=== PATIENT | female | born 1990 | race Caucasian/White ===

== ENCOUNTER 2019-03-06 05:12 | Emergency (ER) | payer BC ==
[~2019-03-06] VITALS: Ht 162.6 cm; Wt 77.1 kg
[2019-03-06 05:54] LABS: URINE BILIRUBIN NEGATIVE (Negative); URINE BLOOD NEGATIVE (Negative); URINE CLARITY CLEAR; URINE COLOR YELLOW; URINE GLUCOSE-RANDOM* NEGATIVE (Negative); URINE KETONES NEGATIVE (Negative); URINE LEUKOCYTES-REFLEX NEGATIVE (Negative); URINE NITRITE-REFLEX NEGATIVE (Negative); URINE PROTEIN (DIPSTICK) NEGATIVE (Negative); URINE SPECIFIC GRAVITY >= 1.030 (1.005-1.035); URINE UROBILINOGEN 0.2 E.U./dl (0.2-1.0)
[2019-03-06 06:02] VITALS: BP 113/75
[2019-03-06] MEDS ORDERED: ADDERALL 15 MG15 MG PO (06:05)
== END 2019-03-06 06:02 | disposition home or self-care (01) ==
LOC: ER 05:12
PROVIDERS: Emergency Medicine
DX: R10.13 Epigastric pain (principal); R10.12 Left upper quadrant pain; F90.9 Attention-deficit hyperactivity disorder, unspecified type